=== PATIENT | female | born 1955 | race Hispanic/Latino ===

== ENCOUNTER 2020-09-10 10:25 | Emergency (ER) | payer MEDICARE, MEDICAID, SELFPAY ==
--- NOTE | ~2020-09-10 | CT_ITS ---
EXAMINATION: CT lumbar spine wo con DATE: 09/10/2020 13:10 INDICATION: Low back pain. Sciatica. TECHNIQUE: Computed tomography (CT) of the lumbar spine was performed without intravenous contrast. A utomated exposure control and iterative reconstruction technique were employed. The dose-length produ ct was 252.27 mGy-cm. COMPARISON: Lumbar spine radiographs 09/10/2020 FINDINGS: Bone alignment is normal. Vertebral body heights and intervertebral disc heights are normal . The following disc levels are specifically discussed: L1-L2: The disc does not extend beyond the endplate margin. There is mild bilateral facet joint osteo arthritis. There is no neural foraminal stenosis. There is no central canal stenosis. L2-L3: The disc does not extend beyond the endplate margin. There is mild bilateral facet joint osteo arthritis. There is no neural foraminal stenosis. There is no central canal stenosis. L3-L4: The disc is bulging. There is mild right and severe left facet joint osteoarthritis. There is mild bilateral neural foraminal stenosis. There is mild central canal stenosis. L4-L5: The disc is bulging. There is mild bilateral facet joint osteoarthritis. There is mild bilater al neural foraminal stenosis. There is mild central canal stenosis. L5-S1: The disc is bulging. There is severe bilateral facet joint osteoarthritis. There is mild bilat eral neural foraminal stenosis. There is mild central canal stenosis. IMPRESSION: 1. Mild lumbar spondylosis. Reviewed, dictated and finalized at location A. IMPRESSION: 1. Mild lumbar spondylosis.
--- NOTE | ~2020-09-10 | XR_ITS ---
EXAMINATION: XR lumbar spine 2-3V EXAM DATE: 09/10/2020 11:04 INDICATION: Left-sided sciatic after reaching for something. Low abdominal pain. TECHNIQUE: Lumber spine frontal, lateral, lateral L5-S1 projections for interpretation. There is no prior study for comparison. FINDINGS: Mild lumbar levoscoliosis. Mild to moderate lumbar facet arthropathy. Vertebral body and disc heights are well-maintained. Sacrum, sacroiliac joints, sacral arcuate lines are intact. Clips. IMPRESSION: 1. Mild lumbar levoscoliosis. 2. Mild to moderate facet arthropathy. Reviewed, dictated and finalized at location B.
[2020-09-10 11:01] LABS: Basophils Percent Auto 0.7 % (0.2-1.2); Eosinophils Absolute Auto 0.1 K/mm3 (0-0.3); Eosinophils Percent Auto 1.1 % (0-4.4); Hematocrit 38.4 % (37.0-47.0); Hemoglobin 12.5 g/dL (12.0-15.0); Immature Granulocyte Absolute 0.01 K/mm3 (0.00-0.031); Immature Granulocyte Percent A 0.2 % (0-0.5); Lymphocytes Absolute Auto 2.26 K/mm3 (0.9-3.2); Lymphocytes Percent Auto 41.1 % (18.3-44.2); Mean Corpuscular HGB Conc 32.6 g/dl (32-36); Mean Corpuscular Hemoglobin 33.2 pg (26-34); Mean Corpuscular Volume 101.9 fl (80-100); Mean Platelet Volume 10.4 fl (7.4-10.4); Monocytes Absolute Auto 0.4 K/mm3 (0.1-0.6); Monocytes Percent Auto 6.7 % (2.6-8.5); Neutrophils Absolute Auto 2.8 K/mm3 (1.3-6.7); Neutrophils Percent Auto 50.2 % (45.5-73.1); Platelet Count Result 156 k/mm3 (150-375); Red Blood Count 3.77 M/mm3 (4.2-5.4); Red Cell Distribution Width 12.6 % (11.5-14.5); White Blood Count 5.5 K/mm3 (4.5-10.0)
[2020-09-10 11:12] LABS: Anion Gap 7 mmol/L (8-16); Blood Urea Nitrogen 12 mg/dL (7-17); Calcium 9.3 mg/dL (8.4-10.2); Carbon Dioxide 25 mmol/L (22-30); Chloride 106 mmol/L (98-107); Estimated Glomerular Filt Rate > 60; Glucose 103 mg/dL (65-105); Potassium 3.8 mmol/L (3.4-5.0); Sodium 138 mmol/L (137-145)
[2020-09-10 11:31] VITALS: BP 104/65; PULSE 84; RESP 17; O2SAT 97
[2020-09-10] MEDS: KETOROLAC 30 MG/ML VIAL (*BKC) IV PUSH (11:33)
[2020-09-10] MEDS: diazePAM INJ (*CRX) 10 MG/2 ML SYRINGE 5 MG IV PUSH (11:33)
--- NOTE | 2020-09-10 12:07 | ED.LOWEXIN ---
HPI - Extremity Injury (Lower) General Chief Complaint: Extremity Injury, Lower Stated Complaint: pain Time Seen by Provider: 09/10/20 10:37 History of Present Illness HPI Narrative: Patient is a 65-year-old female who presents ER with left lower leg pain as well as left low back pain. Pain has been increasing over the last few days. Initially started after standing up to reach for something in her garden. No numbness or tingling but pain is worse with palpation to the medial thigh and low back/buttock region. No saddle anesthesia or difficulty with urination/defecation. Related Data Allergies Allergy/AdvReac Type Severity Reaction Status Date / Time No Known Allergies Allergy Unverified 09/03/10 11:30 Review of Systems Review of Systems: All systems reviewed & are unremarkable except as noted in HPI and below Constitutional: Constitutional: Denies chills, Denies fever(s) and Denies weakness Gastrointestinal: Gastrointestinal: Denies nausea and Denies vomiting Genitourinary: Genitourinary: Denies nocturia, Denies dysuria and Denies flank pain Musculoskeletal: Musculoskeletal: Reports back pain, Denies arthralgias, Denies joint swelling and Denies muscle cramps Neurologic: Denies focal weakness and Denies numbness PMFSH Past Medical History Medical History (Updated 09/10/20 @ 14:19 by Sanya Mak MD) Healthy female adult Surgical History Surgical History (Updated 09/10/20 @ 12:14 by Sanya Mak MD) History of cholecystectomy Social History Social History (Updated 09/10/20 @ 12:14 by Sanya Mak MD) Smoking status: Never smoker Exam Narrative: Exam Narrative: GENERAL: Uncomfortable-appearing, well-nourished, and in mild distress. HEAD: Normocephalic, atraumatic. CHEST: Clear to auscultation. No respiratory distress. HEART: Regular rate and rhythm. No murmur heard. Normal peripheral pulses. Back: Significantly tender over the left SI/buttock region. No midline tenderness. EXTREMITIES: Normal range of motion. No edema. Tender palpation medial thigh left side. Normal perfusion of the left lower extremity. SKIN: Warm, dry, no rash. NEURO: No focal deficits. Alert and oriented x3. PSYCH: Normal mood and affect. Course Course Emergency Course: Patient's pain markedly improved with Toradol/Valium/fentanyl. Discharge home with supportive care. Patient has follow-up with PCP tomorrow. Vital Signs Vital signs: Vital Signs Pulse Rate 84 09/10/20 11:31 Respiratory Rate 17 09/10/20 11:31 Blood Pressure 104/65 09/10/20 11:31 Pulse Oximetry 97 09/10/20 11:31 Pulse Rate 75 09/10/20 12:13 Respiratory Rate 16 09/10/20 12:13 Blood Pressure 98/62 L 09/10/20 12:13 Pulse Oximetry 98 09/10/20 12:13 MDM - Extremity Injury (Lower) Lab Data Result diagrams: 09/10/20 10:55 09/10/20 10:55 Labs: Lab Results 09/10/20 09/10/20 Range/Units 10:55 10:55 WBC 5.5 (4.5-10.0) K/mm3 RBC 3.77 L (4.2-5.4) M/mm3 Hgb 12.5 (12.0-15.0) g/dL Hct 38.4 (37.0-47.0) % MCV 101.9 H (80-100) fl MCH 33.2 (26-34) pg MCHC 32.6 (32-36) g/dl RDW 12.6 (11.5-14.5) % Plt Count 156 (150-375) k/mm3 MPV 10.4 (7.4-10.4) fl Immature Gran % (Auto) 0.2 (0-0.5) % Neut % (Auto) 50.2 (45.5-73.1) % Lymph % (Auto) 41.1 (18.3-44.2) % Merrick % (Auto) 6.7 (2.6-8.5) % Eos % (Auto) 1.1 (0-4.4) % Baso % (Auto) 0.7 (0.2-1.2) % Lymph # (Auto) 2.26 (0.9-3.2) K/mm3 Merrick # (Auto) 0.4 (0.1-0.6) K/mm3 Eos # (Auto) 0.1 (0-0.3) K/mm3 Baso # (Auto) 0.0 (0.0-0.1) K/mm3 Abs Immat Gran (auto) 0.01 (0.00-0.031) K/mm3 Absolute Neuts (auto) 2.8 (1.3-6.7) K/mm3 Absolute Nucleated RBC 0.0 (0.0-0.012) K/mm3 Nucleated RBC % 0.0 (0.0-0.2) % Sodium 138 (137-145) mmol/L Potassium 3.8 (3.4-5.0) mmol/L Chloride 106 (98-107) mmol/L Carbon Dioxide 25 (22-30) mmol/L Anion Gap
[2020-09-10 12:13] VITALS: BP 98/62; PULSE 75; RESP 16; O2SAT 98
[2020-09-10] MEDS: fentaNYL CITRATE INJ (*CRX) 100 MCG/2 ML VIAL 50 MCG IV PUSH (12:40)
--- NOTE | 2020-09-10 13:57 | PC.NURSE ---
JESSICA cavanaugh had pt up and walked the [place] with no difficulty
[2020-09-10 14:51] VITALS: BP 101/65; PULSE 71; RESP 16; O2SAT 98
== END 2020-09-10 14:53 | disposition home or self-care (01) ==
PROVIDERS: Emergency Provider Emergency Medicine; PCP Internal Medicine
DX: M54.42 Lumbago with sciatica, left side (principal)
CPT/HCPCS: 36415; 72100; 72131; 80048; 85025; 96374; 96375; 99284; J1885; J3010; J3360

== ENCOUNTER 2021-09-30 09:06 | Emergency (ER) | payer MEDICARE, MEDICAID, SELFPAY ==
[2021-09-30] VITALS (8 sets, daily range): BP systolic 110–137; BP diastolic 54–88; PULSE 77–90; RESP 15–16; TEMP 37; O2SAT 97–100
--- NOTE | ~2021-09-30 | XR_ITS ---
EXAMINATION: XR hip LT min 3V w AP pelvis INDICATION: Left hip pain TECHNIQUE: AP view the pelvis and three views of the left hip are obtained. COMPARISON: None available FINDINGS: Bone alignment is normal. There is no acute fracture. Three internal stabilization screws a re present in the left femoral neck. No evidence of hardware failure or loosening. There is mild oste oarthritis of the hips. IMPRESSION: 1. No acute osseous abnormality. Reviewed, dictated and finalized at location B.
--- NOTE | ~2021-09-30 | CT_ITS ---
EXAMINATION: CT hip LT wo con DATE: 09/30/2021 11:26 INDICATION: Left hip pain TECHNIQUE: High resolution computed tomography (CT) of the left hip was performed without intravenous contrast. Additional sagittal and coronal reconstructions were performed. Automated exposure control and iterative reconstruction technique were employed. The dose-length product was 148.82 mGy-cm. COMPARISON: Left hip radiographs dated 09/30/2021 FINDINGS: Left femoral head and neck are fixed with 3 cannulated lag screws which appear normally positioned. T he distal tips of the screws do not extend beyond the cortical margin of the femoral head. Alignment is normal. No fractures identified. No left hip joint effusion. Mild axial predominant nonuniform portia nt space narrowing at the left hip. Visualized soft tissues about the left hip are unremarkable. IMPRESSION: 1. Internal fixation at the left femoral head and neck with no acute osseous abnormality. Reviewed, dictated and finalized at location A. IMPRESSION: 1. Internal fixation at the left femoral head and neck with no acute osseous ab normality.
--- NOTE | 2021-09-30 09:23 | ED.GENADULT ---
HPI - General Adult General Chief complaint: Unspecified Stated complaint: pain all over Time Seen by Provider: 09/30/21 09:12 Source: patient and family Mode of arrival: EMS Limitations: no limitations History of Present Illness HPI narrative: Patient is a 66-year-old male who presents the ED via EMS with report of L hip pain. Patient is primarily Lao speaking, family at bedside assisted in providing information. Patient reports having a left hip ORIF last October. She has had issues with chronic pain in her left hip since then. Pain has become worse over the last 3 weeks. No further injury. She was seen by her physician at [facility] 3 days ago and had blood work and x-rays of her left hip performed. Unsure of results. Family states she is supposed to be getting a MRI of her left hip performed soon, but is waiting on insurance approval. Family is wanting patient to be transferred to [facility] at this time as this is where her doctors can evaluate her. Patient did have an acute injury today. She states she slid while walking, causing further pain in her left hip, but denied any direct fall onto her left hip. No head injury or LOC. She is able to ambulate still, but has pain with this. She has been taking Tylenol and tramadol at home for the pain over the last 3 weeks. Last took Tylenol at 6 am this morning. Related Data Allergies Allergy/AdvReac Type Severity Reaction Status Date / Time No Known Allergies Allergy Unverified 09/30/21 09:20 Review of Systems Review of Systems: CONSTITUTIONAL: Denies fever. MUSCULOSKELETAL: Reports left hip pain. NEUROLOGIC: Denies HI, LOC, headache, numbness, or weakness. All systems reviewed & are unremarkable except as noted in HPI and below PMFSH Past Medical History Medical History (Updated 09/30/21 @ 16:14 by Day Chapa PA-C) Chronic left hip pain Insomnia Osteoporosis Surgical History Surgical History (Updated 09/30/21 @ 09:50 by Day Chapa PA-C) History of cholecystectomy History of hip surgery Social History Social History Smoking status: Never smoker Exam Narrative: GENERAL: Well appearing, thin, non-toxic, in no acute distress. HEAD: Normocephalic, atraumatic. EYES: PERRL/EOMI, conjunctivae clear bilaterally. NECK: Supple. No adenopathy, no masses. RESPIRATORY: Airway patent, respirations nonlabored. Clear to auscultation bilaterally, no rales, rhonchi, wheezing. CARDIOVASCULAR: Regular rate and rhythm without murmurs, rubs, or gallops. Peripheral pulses 2+ and equal bilaterally. MUSCULOSKELETAL: Limited range of motion of left lower extremity due to pain. Just barely able to flex L hip/lift left leg off ED stretcher. Tenderness to palpation over left iliac crest and proximal L femur. Significant apprehension of palpation, limiting full examination. No tenderness in L knee/lower leg. SKIN: Warm, dry, normal color. No rashes. NEURO: A&O X3. Speech clear. Cranial nerves II-XII grossly intact. No ataxic movements. PSYCHIATRIC: Appropriate mood and affect. Normal interaction. Course Vital Signs Vital signs: Vital Signs Temperature 98.6 F 09/30/21 09:17 Pulse Rate 86 09/30/21 09:17 Respiratory Rate 15 09/30/21 09:17 Blood Pressure 137/62 09/30/21 09:17 Pulse Oximetry 100 09/30/21 09:17 Oxygen Delivery Room Air 09/30/21 09:17 Temperature 98.6 F 09/30/21 09:17 Pulse Rate 78 09/30/21 14:37 Respiratory Rate 16 09/30/21 14:37 Blood Pressure 113/68 09/30/21 14:37 Pulse Oximetry 97 09/30/21 14:37 Oxygen Delivery Room Air 09/30/21 09:17 Medical Decision Making [facility] Narrative Medical decision making narrative: Patient presented to ED with report of acute on chronic left hip pain. S/p left hip ORIF last October. Family immediately requesting transfer to [facility] upon my initial evaluation as this is where her doctors
--- NOTE | 2021-09-30 09:38 | PC.NURSE ---
FELECIA at bedside. Family states patient receives all of her care at [facility] and pt would like to be transferred there. Pt does not want any testing done at this facility.
--- NOTE | 2021-09-30 09:47 | PC.NURSE ---
Pt agreeable to xray.
--- NOTE | 2021-09-30 09:58 | PC.NURSE ---
Pt in xray.
[2021-09-30] MEDS: KETOROLAC 30 MG/ML VIAL (*BKC) IV PUSH (10:08)
--- NOTE | 2021-09-30 10:51 | PC.NURSE ---
ERPA at bedside to speak with pt and family.
--- NOTE | 2021-09-30 11:39 | PC.NURSE ---
pt bed soaking wet, iv disconnected. will get new order for new bag of iv tylenol.
[2021-09-30 11:59] LABS: Basophils Percent Auto 0.6 % (0.2-1.2); Eosinophils Percent Auto 0.5 % (0-4.4); Hematocrit 39.4 % (37.0-47.0); Hemoglobin 12.6 g/dL (12.0-15.0); Immature Granulocyte Absolute 0.02 K/mm3 (0.00-0.031); Immature Granulocyte Percent A 0.3 % (0-0.5); Lymphocytes Absolute Auto 1.81 K/mm3 (0.9-3.2); Lymphocytes Percent Auto 28.4 % (18.3-44.2); Mean Corpuscular Hemoglobin 33.3 pg (26-34); Mean Corpuscular Volume 104.2 fl (80-100); Mean Platelet Volume 11.1 fl (7.4-10.4); Monocytes Absolute Auto 0.3 K/mm3 (0.1-0.6); Monocytes Percent Auto 4.2 % (2.6-8.5); Neutrophils Absolute Auto 4.2 K/mm3 (1.3-6.7); Platelet Count Result 147 k/mm3 (150-375); Red Blood Count 3.78 M/mm3 (4.2-5.4); Red Cell Distribution Width 12.5 % (11.5-14.5); White Blood Count 6.4 K/mm3 (4.5-10.0)
[2021-09-30 12:11] LABS: Alanine Aminotransferase 35 U/L (6-35); Albumin Level 4.2 g/dL (3.5-5.1); Alkaline Phosphatase 73 U/L (38-126); Anion Gap 7 mmol/L (8-16); Aspartate Amino Transferase 50 U/L (14-36); Bilirubin,Total 0.5 mg/dL (0.2-1.3); Blood Urea Nitrogen 9 mg/dL (7-17); Calcium 8.8 mg/dL (8.4-10.2); Carbon Dioxide 28 mmol/L (22-30); Chloride 108 mmol/L (98-107); Estimated CRCL calculation 51 ml/min; Estimated Glomerular Filt Rate > 60; Glucose 109 mg/dL (65-110); Potassium 4.3 mmol/L (3.4-5.0); Sodium 143 mmol/L (137-145)
--- NOTE | 2021-09-30 12:41 | PC.NURSE ---
ERPA at bedside to discuss results and treatment plan with pt.
[2021-09-30] MEDS: diazePAM INJ (*CRX) 10 MG/2 ML SYRINGE 2.5 MG IV PUSH (12:58)
[2021-09-30] MEDS: MORPHINE SULFATE (*CRX) 2 MG/ML INJ IV PUSH (13:45)
[2021-09-30] MEDS: ONDANSETRON INJ 4 MG/2 ML VIAL IV PUSH (13:45)
== END 2021-09-30 15:00 | disposition home or self-care (01) ==
PROVIDERS: Physician Assistant; Emergency Provider Emergency Medicine; PCP Internal Medicine
DX: M25.552 Pain in left hip (principal); M81.0 Age-related osteoporosis without current pathological fracture; Z96.642 Presence of left artificial hip joint; W18.40XA Slipping, tripping and stumbling without falling, unspecified, initial encounter
CPT/HCPCS: 36415; 73502; 73700; 80053; 85025; 96365; 96366; 96375; 99284; J0131; J1885; J2270; J2405; J3360

== ENCOUNTER 2022-05-04 17:37 | Emergency (ER) | payer MEDICARE, MEDICAID, SELFPAY ==
--- NOTE | ~2022-05-04 | XR_ITS ---
EXAMINATION: XR chest 2V DATE: 05/04/2022 18:18 INDICATION: Chest pain and shortness of breath TECHNIQUE: PA and lateral views of the chest are obtained. COMPARISON: None available FINDINGS: The lungs are free of acute opacities. No pleural effusion or pneumothorax. The cardiomedia stinal silhouette is normal. There is mild thoracic spondylosis. IMPRESSION: 1. No acute cardiopulmonary abnormality. Reviewed, dictated and finalized at location F. ESS MOLD TECHNICIAN
--- NOTE | 2022-05-04 17:47 | ECG_ITS ---
Measurements Intervals Summers Rate: 90 P: 70 OK: 144 QRS: 61 QRSD: 90 T: 59 QT: 375 QTc: 459 Interpretive Statements SINUS RHYTHM BASELINE ARTIFACT- I, II, III, AVR, AVL, AVF, V1 NORMAL ECG NO PREVIOUS ECG AVAILABLE FOR COMPARISON Electronically Signed On 05-04-2022 18:50:15 ASSOCIATE ACCOUNTANT by Raman Schuster D.O.
[2022-05-04 18:02] VITALS: BP 133/70; PULSE 91; RESP 16; TEMP 36.9; O2SAT 98
[2022-05-04 18:11] LABS: Basophils Percent Auto 0.4 % (0.2-1.2); Eosinophils Absolute Auto 0.1 K/mm3 (0-0.3); Eosinophils Percent Auto 0.9 % (0-4.4); Hematocrit 38.1 % (37.0-47.0); Hemoglobin 12.2 g/dL (12.0-15.0); Immature Granulocyte Absolute 0.03 K/mm3 (0.00-0.031); Immature Granulocyte Percent A 0.4 % (0-0.5); Lymphocytes Absolute Auto 2.14 K/mm3 (0.9-3.2); Lymphocytes Percent Auto 28.7 % (18.3-44.2); Mean Corpuscular Hemoglobin 32.9 pg (26-34); Mean Corpuscular Volume 102.7 fl (80-100); Mean Platelet Volume 10.6 fl (7.4-10.4); Monocytes Absolute Auto 0.6 K/mm3 (0.1-0.6); Monocytes Percent Auto 7.7 % (2.6-8.5); Neutrophils Absolute Auto 4.6 K/mm3 (1.3-6.7); Neutrophils Percent Auto 61.9 % (45.5-73.1); Platelet Count Result 279 k/mm3 (150-375); Red Blood Count 3.71 M/mm3 (4.2-5.4); Red Cell Distribution Width 12.7 % (11.5-14.5); White Blood Count 7.5 K/mm3 (4.5-10.0)
[2022-05-04 18:22] LABS: Alanine Aminotransferase 216 U/L (6-35); Albumin Level 4.6 g/dL (3.5-5.1); Alkaline Phosphatase 212 U/L (38-126); Anion Gap 9 mmol/L (8-16); Aspartate Amino Transferase 163 U/L (14-36); Bilirubin,Total 0.5 mg/dL (0.2-1.3); Blood Urea Nitrogen 12 mg/dL (7-17); Calcium 9.4 mg/dL (8.4-10.2); Carbon Dioxide 26 mmol/L (22-30); Chloride 105 mmol/L (98-107); Estimated CRCL calculation 67 ml/min; Estimated Glomerular Filt Rate > 60; Glucose 105 mg/dL (65-110); Lipase 60 U/L (23-300); Partial Thromboplastin Time 29.8 SECONDS (22.3-36.8); Potassium 3.8 mmol/L (3.4-5.0); Prothrombin Time 12.3 Seconds (11.1-14.7); Sodium 140 mmol/L (137-145)
[2022-05-04 18:32] LABS: Troponin I < 0.012 ng/mL (0.000-0.034)
--- NOTE | 2022-05-04 21:46 | PC.NURSE ---
no answer at triage for vital signs
--- NOTE | 2022-05-04 23:49 | PC.NURSE ---
no answer at triage for labs
== END 2022-05-05 01:12 | disposition left against medical advice (07) ==
PROVIDERS: Emergency Provider Emergency Medicine; PCP Internal Medicine
DX: R07.9 Chest pain, unspecified (principal); Z53.21 Procedure and treatment not carried out due to patient leaving prior to being seen by health care provider
CPT/HCPCS: 36415; 71046; 80053; 83690; 84484; 85025; 85610; 85730; 93005; 99199